=== PATIENT | female | born 1965 ===

== ENCOUNTER 2016-05-20 10:30 | Emergency (ER) | payer MEDICAID, OTHER ==
[2016-05-20 10:36] VITALS: PULSE 70; TEMP 97
[2016-05-20 10:37] VITALS: BMI 27.0
[2016-05-20] MEDS ORDERED: Albuterol-Ipratrop 3 mg / 0.5 (3 ml) UD INH STA (11:32)
[2016-05-20] MEDS ORDERED: Albuterol-Ipratrop 3 mg / 0.5 (3 ml) UD ONE (11:34)
--- NOTE | 2016-05-20 11:36 | ED PDOC ---
HPI: Trauma/Fall - HPI Time Seen by Provider: 05/20/16 10:37 Chief Complaint (Nursing): Trauma Chief Complaint (Provider): Trauma History Per: Patient History/Exam Limitations: no limitations Injury Occurred (Timing): Just Before Arrival Location Of Injury: Right: Back, Buttock, Chest, Hip, Knee Severity: Mild Additional Complaint(s): Patient is a 50 year old female who presents to ED via EMS for evaluation of right sided body pain s/p fall this morning. Patient states she slipped on the ice, landing on her right side, now with pain to the right shoulder, ribs, hip, knee and buttock. Patient denies headache, vision changes, neck pain, abdominal pain, left sided pain or chest pain. Patient also notes a cough with mild SOB for 2 days. Notes that her asthma always bothers her in the cold weather. Denies fever. Past Medical History Reviewed: Historical Data, Nursing Documentation, Vital Signs Vital Signs: Last Vital Signs Temp 97 F L 05/20/16 10:35 Pulse 70 05/20/16 10:35 Resp BP 104/70 05/20/16 10:35 Pulse Ox 96 05/20/16 11:43 - Medical History PMH: Asthma - Surgical History Surgical History: No Surg Hx - Family History Family History: States: No Known Family Hx - Living Arrangements Living Arrangements: With Family - Home Medications Home Medications: Ambulatory Orders Medication Instructions Recorded Albuterol HFA [Ventolin HFA 90 2 puff IH Q4 PRN #1 unit 05/20/16 mcg/actuation (8 g)] Cyclobenzaprine [Cyclobenzaprine 10 mg PO Q8 PRN #12 tab 05/20/16 HCl] Ibuprofen [Motrin] 600 mg PO TID PRN #30 tab 05/20/16 Methylprednisolone [Medrol Dose 4 mg PO DAILY #1 packet 05/20/16 Pack (21 tabs)] traMADol [Ultram] 50 mg PO Q8 PRN #9 tab 05/20/16 - Allergies Allergies/Adverse Reactions: Allergies Allergy/AdvReac Type Severity Reaction Status Date / Time codeine Allergy ANAPHYLAXIS Verified 05/20/16 10:43 Review of Systems ROS Statement: Except As Marked, All Systems Reviewed And Found Negative Constitutional: Negative for: Fever, Chills Cardiovascular: Positive for: Other (Right rib pain). Negative for: Chest Pain , Palpitations Respiratory: Positive for: Cough, Shortness of Breath, Wheezing Gastrointestinal: Negative for: Nausea, Vomiting, Abdominal Pain Musculoskeletal: Positive for: Shoulder Pain, Back Pain, Leg Pain. Negative for : Neck Pain Neurological: Negative for: Weakness, Numbness, Headache, Dizziness Physical Exam - Reviewed Nursing Documentation Reviewed: Yes Vital Signs Reviewed: Yes - Physical Exam Appears: Positive for: No Acute Distress, Uncomfortable (mild painful distress ) Head Exam: Positive for: ATRAUMATIC, NORMAL INSPECTION Skin: Positive for: Normal Color, Warm Eye Exam: Positive for: Normal appearance Neck: Positive for: Normal, Painless ROM, Supple Cardiovascular/Chest: Positive for: Regular Rate, Rhythm. Negative for: Chest Non Tender (Right lateral rib tenderness (-) flail chest ), Murmur Respiratory: Positive for: Wheezing (slight expiratory ). Negative for: Rales, Rhonchi, Respiratory Distress Pulses-Dorsalis Pedis (R): 2+ Pulses-Radial (R): 2+ Gastrointestinal/Abdominal: Positive for: Normal Exam. Negative for: Tenderness Back: Positive for: Normal Inspection, Other (slight right lumbar tenderness (- ) step off. Right buttock (+) tenderness with eccymosis ) Extremity: Positive for: Tenderness (Right posterior shoulder: (+) tenderness (- ) deformity, Full ROM. Right knee: (+) slight swelling and tenderness with decrease flextion due to pain ), Other (Right lateral hip: (+) tenderness with no deformity and full ROM. ). Negative for: Pedal Edema, Calf Tenderness, Deformity Neurologic/Psych: Positive for: Alert, Oriented - ECG O2 Sat by Pulse Oximetry: 96 (RA) Pulse Ox Interpretation: Normal Medical Decision Making Medical Decision Making: Time: 1114 Initial impression: Fall injury r/o fractures. SOB with cough likely asthma exacerbation r/o pneumonia Initial plan: -- Urine preg -- Urine dip -- Knee Xray -- Duoneb, Toradol and Prednisone -- Hip, LS spine, Right rib/CXR, Shoulder Xray Scribe Attestation: Documented by Shasha Healy acting as a scribe for Sean Cross PA-C. MD Scribe Attestation: All medical record entries made by the Scribe were at my direction and personally dictated by me. I have reviewed the chart and agree that the record accurately reflects my personal performance of the history, physical exam, medical decision making, and the department course for this patient. I have also personally directed, reviewed, and agree with the discharge instructions and disposition. Xrays reviewed- no fractures or dislocations Knee read by radiologist- IMPRESSION: Moderate medial and mild patellofemoral osteoarthritis. She is feeling better, pain controlled. Lung with only slight end expiratory wheezing, no SOB. will give patient incentive spirometer. knee immobilizer placed discussed RICE, follow up and discharge information, all questioned answered. stable for discharge. Disposition - Clinical Impression Clinical Impression: Fall due to ice or snow, Shoulder pain, Rib pain on right side, Knee pain, Lumbar pain, Hip pain, Acute asthma flare - Patient ED Disposition Is Patient to be Admitted: No Counseled Patient/Family Regarding: Studies Performed, Diagnosis, Need For Followup, Rx Given - Disposition Referrals: [facility] [place] [Outside] [facility] [place] [Outside] Disposition: Routine/Home Disposition Time: 13:31 Condition: IMPROVED Additional Instructions: rest, ice, elevation of the leg, incentive spirometer as discussed follow up without fail in 1-2 days return for any new or worsening symptoms Prescriptions: Cyclobenzaprine [Cyclobenzaprine HCl] 10 mg PO Q8 PRN #12 tab PRN Reason: Muscle Pain Methylprednisolone [Medrol Dose Pack (21 tabs)] 4 mg PO DAILY #1 packet Ibuprofen [Motrin] 600 mg PO TID PRN #30 tab PRN Reason: Other traMADol [Ultram] 50 mg PO Q8 PRN #9 tab PRN Reason: Other Albuterol HFA [Ventolin HFA 90 mcg/actuation (8 g)] 2 puff IH Q4 PRN #1 unit PRN Reason: Wheezing Instructions: Asthma (ED), Rib Contusion (ED), Shoulder Pain (ED), Knee Pain ( ED), Hip Pain (ED) Print Language: LUXEMBOURGER
--- NOTE | 2016-05-20 12:52 | RAD ---
PROCEDURE: Right Knee Radiographs. HISTORY: fall, pain COMPARISON: None available FINDINGS: BONES: No acute fracture. JOINTS: Moderate medial osteoarthritis with marginal osteophyte formation and joint space narrowing. Mild patellofemoral osteoarthritis. Spur arises from superior pole of patella. No articular erosions. JOINT EFFUSION: None. OTHER FINDINGS: None. IMPRESSION: Moderate medial and mild patellofemoral osteoarthritis.
--- NOTE | 2016-05-20 13:55 | RAD ---
PROCEDURE: Radiographs of the Lumbar Spine. HISTORY: fall, pain COMPARISON: No prior. FINDINGS: BONES: Normal alignment. No listhesis. No fracture. DISC SPACES: Unremarkable. OTHER FINDINGS: None. IMPRESSION: Unremarkable radiographs of the lumbar spine.
--- NOTE | 2016-05-20 14:00 | RAD ---
PROCEDURE: Right Hip Radiographs. HISTORY: fall, pain COMPARISON: None. FINDINGS: BONES: Normal. No fracture. JOINTS: Normal. SOFT TISSUES: Normal. OTHER FINDINGS: None. IMPRESSION: Normal radiographs of right hip.
--- NOTE | 2016-05-20 14:00 | RAD ---
PROCEDURE: Radiographs of the Right Shoulder HISTORY: fall, pain COMPARISON: No prior. FINDINGS: BONES: Normal. No fracture. JOINTS: Normal. Glenohumeral and acromioclavicular joints preserved. No osteoarthritis. SOFT TISSUES: Tiny soft tissue calcification adjacent to greater tuberosity consistent with calcific tendinitis. OTHER FINDINGS: None. IMPRESSION: No fracture. Calcific tendinitis.
[2016-05-20 14:02] VITALS: BP 110/70; RESP 16; O2SAT 98
--- NOTE | 2016-05-20 14:02 | RAD ---
PROCEDURE: Radiographs of the Chest and Right Ribs. HISTORY: fall, pain COMPARISON: None available. TECHNIQUE: Frontal radiograph of the chest and multiple oblique radiographs of the right ribs were obtained. FINDINGS: RIGHT RIBS: No fracture or focal lesion visualized. LUNGS: Clear. PLEURA: No pneumothorax or pleural fluid. CARDIOVASCULAR: Normal sized heart. No pulmonary vascular congestion. OTHER FINDINGS: None. IMPRESSION: Unremarkable radiographs of the chest and right ribs. No right rib fracture.
== END 2016-05-20 14:02 | disposition home or self-care (01) ==
LOC: H.ER 10:30
DX: M54.5 Low back pain (principal); R07.81 Pleurodynia; M25.519 Pain in unspecified shoulder; M25.569 Pain in unspecified knee; M25.559 Pain in unspecified hip; W00.9XXA Unspecified fall due to ice and snow, initial encounter; Y92.410 Unspecified street and highway as the place of occurrence of the external cause
CPT/HCPCS: 71101; 72100; 73030; 73502; 73562; 81025; 96372; 99283; J1885

== ENCOUNTER 2017-04-13 15:42 | Emergency (ER) | payer MEDICAID, OTHER ==
[2017-04-13 15:42] VITALS: BMI 27.0
[2017-04-13] MEDS ORDERED: Albuterol-Ipratrop 3 mg / 0.5 (3 ml) UD ONE ×2 (16:02→18:06)
[2017-04-13] MEDS ORDERED: Albuterol-Ipratrop 3 mg / 0.5 (3 ml) UD INH STA ×2 (17:03→17:54)
[2017-04-13 17:13] LABS: BASO % 0.5 % (0.0-2.0); EOS # 0.6 K/uL (0.0-0.7); EOS % 7.5 % (0.0-4.0); HEMOGLOBIN 13.1 g/dL (12.0-16.0); LYMPH # 1.7 K/uL (1.0-4.3); MEAN CELL VOLUME 88.1 fl (81.0-99.0); MEAN CORPUSCULAR HEMOGLOBIN 28.9 pg (27.0-31.0); MEAN CORPUSCULAR HGB CONC 32.8 g/dL (33.0-37.0); MEAN PLATELET VOLUME 8.4 fl (7.2-11.7); MONO # 0.5 K/uL (0.0-0.8); MONO % 6.6 % (0.0-10.0); NEUT # 4.7 K/uL (1.8-7.0); NEUT % 62.4 % (50.0-75.0); RBC 4.54 Mil/uL (3.80-5.20); RED CELL DISTRIBUTION WIDTH 12.7 % (11.5-14.5); WHITE BLOOD COUNT 7.6 K/uL (4.8-10.8)
[2017-04-13 17:23] LABS: BLOOD UREA NITROGEN 12 mg/dl (7-17); CALCIUM 9.3 mg/dL (8.4-10.2); GFR AFRICAN-AMERICAN > 60; GFR NON-AFRICAN AMERICAN > 60
--- NOTE | 2017-04-13 17:54 | ED PDOC ---
HPI: SOB/CHF/COPD Time Seen by Provider: 04/13/17 16:11 Chief Complaint (Nursing): Respiratory Distress Chief Complaint (Provider): cough, SOB History Per: Patient History/Exam Limitations: no limitations Onset/Duration Of Symptoms: Days (3), Gradual Current Symptoms Are (Timing): Still Present Initiating Event: Upper Respiratory Illness Quality: Tightness Exacerbating Factor(s): Exertion, Coughing Current Respiratory Medications: See Home Med List Severity: Moderate Recently: Treated By A Physician Additional Complaint(s): 51yo female hx asthma presents c/o cough, SOB, wheeze ongoing for 3 days. Saw PMD yesterday given IM shot of steroids, no syncope, fever, hemoptysis or resp distress. Does note headache and malaise. Past Medical History Reviewed: Historical Data, Nursing Documentation, Vital Signs Vital Signs: Last Vital Signs Temp 98.3 F 04/13/17 15:52 Pulse 70 04/13/17 17:10 Resp 18 04/13/17 17:10 BP 116/71 04/13/17 15:52 Pulse Ox 98 04/13/17 17:54 - Medical History PMH: Arthritis, Asthma - Family History Family History: States: Unknown Family Hx - Living Arrangements Living Arrangements: With Family - Social History Current smoker - smoking cessation education provided: No - Home Medications Home Medications: Ambulatory Orders Medication Instructions Recorded Albuterol 0.083% [Albuterol 0.083% 2.5 mg IH Q4 PRN #20 neb 04/13/17 Inhal Kimberly (2.5 mg/3 ml) UD] Albuterol HFA [Ventolin HFA 90 1 - 2 puff IH Q4 PRN #1 inhaler 04/13/17 mcg/actuation (8 g)] Azithromycin [Zithromax] 250 mg PO DAILY #6 tab 04/13/17 Prednisone 50 mg PO DAILY #4 tab 04/13/17 - Allergies Allergies/Adverse Reactions: Allergies Allergy/AdvReac Type Severity Reaction Status Date / Time codeine Allergy ANAPHYLAXIS Verified 05/20/16 10:43 Review of Systems Constitutional: Positive for: Weakness, Malaise Cardiovascular: Positive for: Chest Pain. Negative for: Palpitations, Orthopnea Respiratory: Positive for: Cough, Shortness of Breath, Wheezing Gastrointestinal: Negative for: Nausea, Vomiting, Abdominal Pain Genitourinary Female: Negative for: Dysuria Musculoskeletal: Negative for: Neck Pain, Arm Pain, Back Pain, Leg Pain Skin: Negative for: Rash, Lesions, Jaundice, Bruising Neurological: Positive for: Headache. Negative for: Weakness, Numbness Physical Exam - Reviewed Nursing Documentation Reviewed: Yes Vital Signs Reviewed: Yes - Physical Exam Appears: Positive for: Well, Non-toxic, No Acute Distress Head Exam: Positive for: ATRAUMATIC, NORMAL INSPECTION, NORMOCEPHALIC Skin: Positive for: Normal Color, Warm, DRY Eye Exam: Positive for: EOMI, Normal appearance, PERRL ENT: Positive for: Normal ENT Inspection Neck: Positive for: Normal, Painless ROM Cardiovascular/Chest: Positive for: Regular Rate, Rhythm Respiratory: Positive for: Decreased Breath Sounds, Wheezing Gastrointestinal/Abdominal: Positive for: Normal Exam, Bowel Sounds, Soft Back: Positive for: Normal Inspection Extremity: Positive for: Normal ROM Neurologic/Psych: Positive for: Alert, Oriented. Negative for: Motor/Sensory Deficits - Laboratory Results Result Diagrams: 04/13/17 17:00 04/13/17 17:00 - ECG O2 Sat by Pulse Oximetry: 98 Medical Decision Making Medical Decision Making: workup for asthma exacerbation initiated solumedrol, duoneb, CXR/labs flu swab ordered CXR no acute infiltrate labs reviewed flu neg cbc / chem unremarkable 630p peak flow 200, patient wants to go home. explained need for further treatment but she states she has grown autistic child at home requiring her care. ambulating without dyspnea, speaks full sentences. Has nebs at home. DC from ED followup PMD tomorrow. Disposition - Clinical Impression Clinical Impression: Asthma exacerbation - Patient ED Disposition Is Patient to be Admitted: No Counseled Patient/Family Regarding: Studies Performed, Diagnosis, Need For Followup, Rx Given - Disposition Referrals: Luis Sheikh MD [Family Provider] - Disposition: Routine/Home Disposition Time: 18:30 Condition: STABLE Additional Instructions: Take medications as directed. Return to ER for any difficulty breathing. Prescriptions: Albuterol 0.083% [Albuterol 0.083% Inhal Kimberly (2.5 mg/3 ml) UD] 2.5 mg IH Q4 PRN #20 neb PRN Reason: Wheezing Albuterol HFA [Ventolin HFA 90 mcg/actuation (8 g)] 1 - 2 puff IH Q4 PRN #1 inhaler PRN Reason: Shortness Of Breath Azithromycin [Zithromax] 250 mg PO DAILY #6 tab Prednisone 50 mg PO DAILY #4 tab Instructions: Asthma (ED), Acute Bronchitis (ED) Forms: [employer] (Bermudian)
[2017-04-13 18:55] VITALS: BP 135/70; PULSE 89; RESP 17; TEMP 98.9; O2SAT 96
--- NOTE | 2017-04-14 09:59 | RAD ---
HISTORY: chest pain/ r/o infiltrate COMPARISON: Chest radiograph dated 05/20/2016. TECHNIQUE: Chest PA and lateral FINDINGS: LUNGS: No active pulmonary disease. PLEURA: No significant pleural effusion identified. No pneumothorax apparent. CARDIOVASCULAR: Atherosclerotic aortic calcifications. Cardiomediastinal silhouette within normal limits. OSSEOUS STRUCTURES: Unchanged. VISUALIZED UPPER ABDOMEN: Normal. OTHER FINDINGS: None. IMPRESSION: No active disease.
== END 2017-04-13 18:55 | disposition home or self-care (01) ==
LOC: H.ER 15:42
DX: J45.901 Unspecified asthma with (acute) exacerbation (principal); R51 Headache
CPT/HCPCS: 71046; 80048; 85025; 87804; 94150; 94640; 96374; 99283; J2930